=== PATIENT | female | born 1955 ===

== ENCOUNTER 2023-10-31 06:14 | Inpatient (IN) | payer MEDICARE, SELFPAY ==
--- NOTE | 2023-09-24 11:59 | CM ---
Patient is scheduled for an elective R THR on 10/31/23. Spoke with patient prior to surgery via telephone. Introduced role of Orthopedic Navigator. Patient reports that she lives alone in a one story home. She enters into the garage (no steps) and
then has 12 (6-6) steps to all living areas. She currently functions independently and uses a rolling walker. She is on oxygen (she uses 3-4 liters and oxygen is supplied by [employer]). She also has a cane, shower seat and hip kit. She has has had VN
services. PCP is Dr. Higginbotham.
Discussed orthopedic program and post surgical plans. Reviewed anticipated length of stay and that goal is for her to return home at discharge. Also reviewed outpatient PT. Patient is in agreement with tentative plan but will not have transportation
for outpatient PT and will need VN services. Options and PAC data were reviewed and patient selects [facility]. She will not have anyone staying with her when she goes home.
Patient will complete online education.
Plan: Orthopedic Navigator will remain available to assist with the care of patient and will reassess discharge needs after surgery.
[2023-10-08 12:14] VITALS: BMI 42.9
[2023-10-08 14:29] LABS: Hematocrit 41.5 % (37.0-47.0); Hemoglobin 13.6 g/dL (12.0-16.0); Mean Corp Hgb Conc. 32.8 g/dL (33.0-37.0); Mean Corpuscular Hgb 28.6 pg (27.0-31.0); Mean Corpuscular Volume 87.4 fL (81.0-99.0); Mean Platelet Volume 10.3 fL (7.4-10.4); Platelet Count 211 10^3/uL (130-400); Red Blood Cell Count 4.75 10^6/uL (4.20-5.40); Red Cell Dist. Width 13.2 % (11.5-14.5)
[2023-10-08 14:52] LABS: ALT (SGPT) 28 U/L (0-35); AST (SGOT) 34 U/L (14-36); Albumin 4.2 g/dl (3.5-5.0); Alkaline Phosphatase 88 U/L (38-126); Blood Urea Nitrogen 10 mg/dl (7-17); Calcium 9.6 mg/dl (8.4-10.2); Carbon Dioxide 26 mmol/L (22-30); Chloride 100 mmol/L (98-107); Estimated Creatinine Clearance 89 ml/min; Glucose 94 mg/dl (70-99); Sodium 136 mmol/L (135-145); Total Bilirubin 0.8 mg/dl (0.2-1.3); Total Protein 6.5 g/dl (6.3-8.2); eGFR > 60.00
[2023-10-08 14:59] LABS: Potassium 4.5 mmol/L (3.5-5.1)
[2023-10-08 16:27] VITALS: BMI 42.9
[2023-10-31] VITALS (22 sets, daily range): BP systolic 104–163; BP diastolic 58–143; PULSE 65–145; O2SAT 97; BMI 42.9
[2023-10-31] MEDS: CELEBREX 200 MG PO (07:43)
[2023-10-31] MEDS: TYLENOL 650 MG PO (07:43)
[2023-10-31] MEDS: NORMOSOL-R 1000 IV ×2 (07:44→10:39)
--- NOTE | 2023-10-31 09:20 | W.PN.ORTHO ---
Today's Communication / Plan
-
D/c when clinically stable.
Assessment
.
Distal Motor Intact: Yes
Dressing:
Clean, dry and intact.
Assessment:
R hip OA s/p R MARY w/ Dr Mullen 10/31/23
- s/p R TKA, 2010, and L MARY, 2015, at an outside facility
DVT prophylaxis - Enteric coated ASA, b/l venous foot pumps
Post-op nausea - continue Compazine prn - consider Compazine ATC if persistent
- Will order daily Protonix
- Monitor
HTN - diet controlled - monitor BP
COPD with chronic respiratory failure, on supplemental oxygen (3-4 L) - continue supplemental O2 and monitor SpO2 on continuous pulse ox
- Continue inhaler
- DuoNeb as needed
- IS
- Consider Prednisone taper
Obstructive sleep apnea, compliant with CPAP (setting 11) - resume CPAP HS
GERD - add Protonix
Morbid obesity, BMI 42.9; status post gastric sleeve 2014 - pt would benefit from Cefadroxil upon d/c
Mechanical failure of R TKA, status post right total knee revision 2012
Hyperlipidemia
Venous varicosities
Left lower lobe pulmonary nodules
Right middle lobe lung cancer, 2011, status post resection
Chronic dyspnea on exertion
Colon polyps
Hemorrhoids
Nephrolithiasis
Remote migraines
Chronic, intermittent dizziness
Restless leg syndrome
Multilevel degenerative disc disease
Lumbosacral stenosis
Endometriosis
Depression
History of shingles
History of tobacco abuse
Plan
.
Surgery / Date: Roopa HERNANDEZ w/ Dr Mullen 10/31/23
DVT Prophylaxis: Aspirin
Activity:
Out of bed.
PT/OT
Discharge Plan: Home w/ VN
Subjective
.
.:
Patient examined resting in PACU.
Reports RLE cramping post-surgery - Tizanidine ordered STAT.
Post-op nausea - relief provided w/ Compazine prn.
Denies any other new complaints.
Vital Signs and Labs
.
Vital Signs and Labs:
Lab Results
10/08/23 12:11
10/08/23 12:11
Temp Pulse Resp BP Pulse Ox
99.4 F 90 22 125/84 98
10/31/23 07:38 10/31/23 07:38 10/31/23 07:38 10/31/23 07:38 10/31/23 07:38
Physical Exam
-
HEENT: No pallor, cyanosis, or jaundice. Throat clear.
NECK: Supple. No JVD.
RESPIRATORY: Lungs clear to auscultation. O2 dependent.
CVS: S1, S2 normal. RRR.�
ABDOMEN: Soft, non-tender. No distension. Obese.
EXTREMITIES: Strength equal, no calf pain with palpation/dorsiflexion. Calves soft.
COMPUTER TECHNICAL SPECIALIST: AOx3. No focal deficits. human resources office manager grossly intact
[2023-10-31] MEDS: ZOFRAN 4 MG IV (10:25)
[2023-10-31] MEDS: NORCO 5/325 1 TABLET PO (10:50)
[2023-10-31] MEDS: SUBLIMAZE 50 MCG IV (10:58)
[2023-10-31] MEDS: COMPAZINE 5 MG IV (11:24)
[2023-10-31] MEDS: LEXAPRO 20 MG PO (12:24)
[2023-10-31] MEDS: LEXAPRO PO (12:24)
[2023-10-31] MEDS: ZANAFLEX 4 MG PO ×2 (12:25→16:26)
[2023-10-31] MEDS: PROTONIX 40 MG PO (13:14)
[2023-10-31] MEDS: CRESTOR 10 MG PO (13:14)
[2023-10-31] MEDS: SPIRIVA RESPIMAT 2.5 MCG INH (14:29)
[2023-10-31] MEDS: SYMBICORT 80/4.5 MCG INHALER INH (14:29)
--- NOTE | 2023-10-31 14:30 | PTCARENOTE ---
pt received from the PACU via bed. Transport was w/o incident. Pt is AAOx3, HRR, lungs clear/decreased Pulse ox 96%on 3L 02 via nc. Pt's left hip with Aquacell dressing C/D/I w/ dime size shadowing which does not appear to be getting larger. Pt
instructed on plan of care. Pt verbalized understanding of instructions. Call stephens within reach.
[2023-10-31] MEDS: ANCEF 5 IV (15:16)
[2023-10-31] MEDS: NORCO 5/325 2 TABLET PO ×2 (15:18→20:46)
[2023-10-31] MEDS: LIDOCAINE 4% PATCH 2 PATCH TOPICAL (15:21)
[2023-10-31] MEDS: ASPIRIN ENTERIC COATED 325 MG PO (16:25)
[2023-10-31] MEDS: SYMBICORT 80/4.5 MCG INHALER 2 PUFF INH (20:13)
[2023-10-31] MEDS: COLACE 100 MG PO (20:36)
[2023-10-31] MEDS: BACTROBAN 2% OINTMENT 1 APPLIC NASAL (20:36)
[2023-10-31] MEDS: SENOKOT 17.1999999999999993 MG PO (20:36)
[2023-10-31] MEDS: FLORASTOR 250 MG PO (20:36)
[2023-11-01] VITALS (7 sets, daily range): BP systolic 101–134; BP diastolic 48–80; PULSE 63–70
[2023-11-01] MEDS: ANCEF 5 IV (00:16)
[2023-11-01] MEDS: ZANAFLEX 4 MG PO ×2 (00:16→10:54)
[2023-11-01] MEDS: NORCO 5/325 2 TABLET PO ×3 (03:50→13:01)
[2023-11-01] MEDS: SPIRIVA RESPIMAT 2.5 MCG 2 PUFF INH (07:43)
[2023-11-01] MEDS: SYMBICORT 80/4.5 MCG INHALER 2 PUFF INH (07:43)
--- NOTE | 2023-11-01 08:30 | CM ---
Addendum entered by Tamiko Salcedo 11/01/23 11:02:
Met with patient after therapy to discuss discharge plans. She states that she does have family who will be stopping over to provide assistance and they will be more available over the weekend. She feels she will be fine at home and didn't express
any concerns.
[phone]
Original Note:
Reviewed chart and held rounds with PT, OT and nursing. Patient admitted as planned for elective R THR. Met with patient at bedside. Confirmed information previously obtained for assessment. Also discussed discharge plans. The plan is for patient to
return home at discharge. Reviewed VN services including start of care (tentatively 11/01), services to be ordered (PT, OT, SN) and frequency/duration of services. Options list provided and PAC data reviewed. Patient selects [facility].
Patient has a rolling walker, shower seat, oxygen, hip kit, reclining lift chair and a cane at home.
VN referral was completed and sent to [facility] through [employer] with request for start of care on 11/01. Confirmation received of their ability to accept case. formal wear rental clerk to fax discharge instructions to [facility] when
complete.
Patient will use [facility] pharmacy for discharge prescriptions.
[2023-11-01] MEDS: FLORASTOR 250 MG PO (08:50)
[2023-11-01] MEDS: BACTROBAN 2% OINTMENT 1 APPLIC NASAL (08:50)
[2023-11-01] MEDS: LEXAPRO 20 MG PO (08:51)
[2023-11-01] MEDS: COLACE 100 MG PO (08:51)
[2023-11-01] MEDS: SENOKOT 17.1999999999999993 MG PO (08:52)
[2023-11-01] MEDS: ASPIRIN ENTERIC COATED 325 MG PO (08:52)
[2023-11-01] MEDS: LIDOCAINE 4% PATCH 2 PATCH TOPICAL (08:52)
[2023-11-01] MEDS: PROTONIX 40 MG PO (08:52)
--- NOTE | 2023-11-01 09:55 | W.PN.ORTHO ---
Today's Communication / Plan
-
Await PT recs. Did well w/ OT today.
D/c later today if remaining clinically stable.
Assessment
.
Distal Motor Intact: Yes
Dressing:
Clean, dry and intact.
Assessment:
R hip OA s/p R MARY w/ Dr Mullen 10/31/23
- s/p R TKA, 2010, and L MARY, 2015, at an outside facility
DVT prophylaxis - Enteric coated ASA, b/l venous foot pumps
Post-op nausea - resolved w/ Compazine prn and daily Protonix - will Rx upon d/c
HTN - diet controlled - BPs stable
COPD with chronic respiratory failure, on supplemental oxygen (3-4 L) - continue supplemental O2
- Continue inhaler
- DuoNeb as needed (not needed thankfully)
- Continue IS
- Consider Prednisone taper
- SpO2 stable on 3L w/ measures above by POD 1
Obstructive sleep apnea, compliant with CPAP (setting 11) - resumed CPAP HS
GERD - continue added Protonix
Morbid obesity, BMI 42.9; status post gastric sleeve 2014 - pt would benefit from Cefadroxil upon d/c
Mechanical failure of R TKA, status post right total knee revision 2012
Hyperlipidemia
Venous varicosities
Left lower lobe pulmonary nodules
Right middle lobe lung cancer, 2011, status post resection
Chronic dyspnea on exertion
Colon polyps
Hemorrhoids
Nephrolithiasis
Remote migraines
Chronic, intermittent dizziness
Restless leg syndrome
Multilevel degenerative disc disease
Lumbosacral stenosis
Endometriosis
Depression
History of shingles
History of tobacco abuse
Plan
.
Surgery / Date: Roopa HERNANDEZ w/ Dr Mullen 10/31/23
DVT Prophylaxis: Aspirin
Activity:
Out of bed.
PT/OT
Discharge Plan: Home w/ VN
Subjective
.
.:
Patient resting comfortably in her chair this AM.
R hip pain overall well controlled w/ current pain medication regimen.
Did verbalize initial concerns w/ ASA for DVT prevention and h/o gastric bypass - all questions answered to patient's satisfaction.
Denies any other new significant complaints.
Eager for potential d/c today.
Vital Signs and Labs
.
Vital Signs and Labs:
Lab Results
10/08/23 12:11
10/08/23 12:11
Temp Pulse Resp BP Pulse Ox
98.2 F 70 18 134/48 96
11/01/23 08:30 11/01/23 08:30 11/01/23 08:30 11/01/23 08:30 11/01/23 08:30
Non-invasive Hgb result: 10.6
Physical Exam
-
HEENT: No pallor, cyanosis, or jaundice. Throat clear.
NECK: Supple. No JVD.
RESPIRATORY: Lungs clear to auscultation.
CVS: S1, S2 normal. RRR.�
ABDOMEN: Soft, non-tender. No distension. Obese.
EXTREMITIES: Strength equal, no calf pain with palpation/dorsiflexion. Calves soft.
WELDER EXPLOSION: AOx3. No focal deficits. market asset protection manager grossly intact
--- NOTE | 2023-11-01 11:21 | W.DS.TRANS ---
DC Summary - Manager Video Games
-
Discharge Instructions:
Discharge Diagnosis/Procedures R hip OA s/p R MARY w/ Dr Mullen 10/31/23
Diet Other diet
Additional Diets Diabetic carb controlled x1 week for wound
healing/infection prevention; then resume
regular diet.
Activity As tolerated,With Walker
Driving Restrictions Not until seen by your Dr
Bathing Restrictions OK to Shower
Other Services VN,PT,OT
Wound Care Dressing to be removed 1 week post-surgery.
Cheo to be removed in 2 weeks by VN.
Instructions:
Stand-Alone Forms: Total Hip/Knee Replacement D/C
Changes to Home Medications: Yes
Discharge Medications:
DC Medications w/original date entered in [employer]
escitalopram oxalate 20 mg tablet (Lexapro) 20 mg PO .AFTERNOON Depression 10/01/23
fluticasone fur. 100 mcg-umeclid 62.5 mcg-vilant 25 mcg inhalat.powder (Trelegy Ellipta) 1 inh inhalation DAILY Lung/Breathing Issues 10/01/23
rosuvastatin 10 mg tablet (Crestor) 10 mg PO .AFTERNOON High Cholesterol 10/01/23
mupirocin 2 % topical ointment 1 applic intranasal BID #1 tube 10/08/23
Saccharomyces boulardii 250 mg capsule 250 mg PO BID #14 caps 11/01/23
acetaminophen 325 mg tablet 650 mg (2 x 325 mg) PO Q4HPRN PRN mild pain #60 tabs 11/01/23
aspirin 325 mg tablet,delayed release 325 mg PO DAILY #30 tabs 11/01/23
cefadroxil 500 mg capsule 500 mg PO BID #14 caps 11/01/23
diazepam 10 mg tablet 10 mg PO HS PRN restless legs #0 tabs 11/01/23
docusate sodium 100 mg capsule 100 mg PO BID #30 caps 11/01/23
hydrocodone 5 mg-acetaminophen 325 mg tablet 1 tab PO Q4H PRN moderate-severe pain #40 tabs 11/01/23
lidocaine 5 % topical patch 2 patch topical DAILY Pain #0 ea 11/01/23
pantoprazole 40 mg tablet,delayed release 40 mg PO DAILY #30 tabs 11/01/23
polyethylene glycol 3350 17 gram oral powder packet (Miralax) 17 g PO DAILY PRN Constipation #14 ea 11/01/23
prochlorperazine maleate 5 mg tablet 5 mg PO TID PRN nausea and vomiting #30 tabs 11/01/23
sennosides 8.6 mg tablet (Senna Laxative) 17.2 mg (2 x 8.6 mg) PO BID #30 tabs 11/01/23
tirzepatide 7.5 mg/0.5 mL subcutaneous pen injector (Mounjaro) 7.5 mg (0.5 mL) SC WE #0 mL 11/01/23
tizanidine 4 mg tablet 4 mg PO Q8H PRN muscle spasms #30 tabs 11/01/23
Home Medication Changes
Saccharomyces boulardii 250 mg capsule 250 mg PO BID #14 caps 11/01/23
acetaminophen 325 mg tablet 650 mg (2 x 325 mg) PO Q4HPRN PRN mild pain #60 tabs 11/01/23
aspirin 325 mg tablet,delayed release 325 mg PO DAILY #30 tabs 11/01/23
cefadroxil 500 mg capsule 500 mg PO BID #14 caps 11/01/23
docusate sodium 100 mg capsule 100 mg PO BID #30 caps 11/01/23
hydrocodone 5 mg-acetaminophen 325 mg tablet 1 tab PO Q4H PRN moderate-severe pain #40 tabs 11/01/23
lidocaine 5 % topical patch 2 patch topical DAILY Pain #0 ea 11/01/23
pantoprazole 40 mg tablet,delayed release 40 mg PO DAILY #30 tabs 11/01/23
polyethylene glycol 3350 17 gram oral powder packet (Miralax) 17 g PO DAILY PRN Constipation #14 ea 11/01/23
prochlorperazine maleate 5 mg tablet 5 mg PO TID PRN nausea and vomiting #30 tabs 11/01/23
sennosides 8.6 mg tablet (Senna Laxative) 17.2 mg (2 x 8.6 mg) PO BID #30 tabs 11/01/23
tizanidine 4 mg tablet 4 mg PO Q8H PRN muscle spasms #30 tabs 11/01/23
Pending Results: No
[2023-11-01] MEDS: CRESTOR 10 MG PO (13:22)
== END 2023-11-01 15:43 | disposition home health service (06) | DRG 470 ==
LOC: 2 SOUTH 06:14
PROVIDERS: ADMITTING PHYSICIAN Orthopaedic Surgery; FAMILY PHYSICIAN Family Medicine
PROC: 0SR903A Replacement of Right Hip Joint with Ceramic Synthetic Substitute, Uncemented, Open Approach (ICD-10-PCS; 2023-10-31)
DX: M16.11 Unilateral primary osteoarthritis, right hip (principal); Z68.41 Body mass index [BMI] 40.0-44.9, adult; J96.10 Chronic respiratory failure, unspecified whether with hypoxia or hypercapnia; E66.01 Morbid (severe) obesity due to excess calories; I10 Essential (primary) hypertension; E78.5 Hyperlipidemia, unspecified; G25.81 Restless legs syndrome; M48.07 Spinal stenosis, lumbosacral region; F32.A Depression, unspecified; J44.9 Chronic obstructive pulmonary disease, unspecified; K21.9 Gastro-esophageal reflux disease without esophagitis; G47.33 Obstructive sleep apnea (adult) (pediatric); Z85.118 Personal history of other malignant neoplasm of bronchus and lung; Z86.010 Personal history of colon polyps; Z98.84 Bariatric surgery status; Z87.442 Personal history of urinary calculi; Z86.19 Personal history of other infectious and parasitic diseases; Z87.891 Personal history of nicotine dependence; Z79.51 Long term (current) use of inhaled steroids; Z79.85 Long-term (current) use of injectable non-insulin antidiabetic drugs; Z88.2 Allergy status to sulfonamides; Z88.6 Allergy status to analgesic agent; Z88.5 Allergy status to narcotic agent
CPT/HCPCS: 36415; 73502; 80053; 83036; 85027; 87070; 94640; 94660; 97110; 97116; 97163; 97167; 97530; 97535; C1776